=== PATIENT | female | born 1945 | race Caucasian/White ===

== ENCOUNTER → 2018-08-02 15:58 | Outpatient (CLI) | payer MEDICARE, SELFPAY ==
[2018-08-02 16:06] LABS: Pathologist Comment May follow
[2018-08-02 18:23] LABS: Synovial Fld Mononuclear WBC % 87.3 %; Synovial Fld Polynuclear WBC # 0.066 10^3/ul; Synovial Fld Polynuclear WBC % 12.7 %
[2018-08-02 18:35] LABS: RBC /Synovial Fluid 8 /mm3 (0)
[2018-08-02 19:02] LABS: AUTO B FLUID DILUENT BKGD CT WBC <0.1 RBC <0.01 (W<.1,R<.01); Source / Synovial Fluid L.KNEE; Source- Body Fluid SYNOVIAL
[2018-08-02 19:03] LABS: Appearance /Synovial Fluid Sl Cl (CLEAR); Body Fluid QC Type(s) BF3Q,BF4Q; Color / Synovial Fluid Yellow (Pale Yellow); Lymph 10 %; Monocyte /Synovial Fluid 75 %; Neutrophil 15 % (0-25)
[2018-08-06 14:34] LABS: Pathologist Review Reviewed
--- OUTSIDE RECORDS SUMMARY | 2018-09-27 15:38 | XMS RPT_ITS ---
:1945 Author Organization OHIP Care Team Providers Name Role Phone CLARITA ESCOBAR, DR. TERAN W Attending Unavailable MIKE RAMIREZ, MS. ESPAÑA SLilian Primary Care Unavailable DR. JEFFRY OTTO MD. Attending Unavailable MIKE RAMIREZ, MS. ESPAÑA SLilian Primary Care Unavailable EVA BABIN CNP Attending Unavailable MIKE RAMIREZ, MS. TACO SLilian Primary Care Unavailable EVA BABIN CNP Attending Unavailable MIKE RAMIREZ, MS. TACO S. Primary Care Unavailable MIKE RAMIREZ, MSLilian NAJERATACO SLilian Attending Unavailable MIKE RAMIREZ, MS. TACO SLilian Primary Care Unavailable TACO MCKEON (STREET FLUSHER DRIVER) Referring Unavailable NATO REYES Attending Unavailable CLEMENCIA LOPEZ (PA) Attending Unavailable CLEMENCIA LOPEZ) Referring Unavailable CLEMENCIA LOPEZ (ANIBAL) Referring Unavailable CLEMENCIA LOPEZ (ANIBAL) Referring Unavailable Jayshree Edwards Attending Unavailable Taco Mckeon Primary Care Unavailable Eldon Mohan PA-C Attending Unavailable Eldon Mohan PA-C Referring Unavailable Taco Mckeon STREET FLUSHER DRIVER-Ellie Primary Care Unavailable PROBLEMS PROBLEMS DATE TYPE CONDITION / CODE ATTENDING STATUS SOURCE 08/02/2018 Unknown M17.12 - Unilateral [place], Active [facility] primary Eldon RUIZ [facility] M17.12(ICD-10) 03/25/2018 Active Moderate persistent NA Active [facility] asthma, [facility] uncomplicated / Repository J45.40(ICD-10) 09/24/2017 Active Unknown / NATO REYES Active [facility] UNK(Unknown) [facility] [place] Repository PROCEDURES PROCEDURES No Procedure Records FoundRESULTS RESULTS SYNOVIAL FLUID RBC, Collected: 08/02/2018 Status: F Source: [place] WBC AND DIFF 12:00 AM REPOSITORY TYPE CODE TESTS RESULT OUT OF RANGE REFERENCE UNITS LAB L200.5050 0.000-0.000 10 3 uL High SYN Tot 0.[address] Result Comment: This is the Total Number of Nucleated Cell Types in the Body Fluid. LAB L200.5100 0 /mm3 High SYNOVIAL RBC 8 Result Comment: 10,6 AVG=8 LAB L200.5200 0.000-0.002 10 3uL High SYNOVIAL WBC 0.5200 LAB L200.5260 % SYBF Normal PMN WBC% 12.7 LAB L200.5270 10 3/ul SYBF Normal PMN WBC# 0.066 LAB L200.5280 % SYBF Normal MN WBC% 87.3 LAB L200.5800 PATH Normal COM/SYFL May follow LAB L200.4600 Normal SYNOVIAL SOURCE L.KNEE LAB L200.4900 Pale Yellow Normal SYNOVIAL COLOR Yellow LAB L200.5000 CLEAR Normal SYNOVIAL DWIGHT. Sl Cl LAB L200.5300 0-25 % Normal NEUTROPHIL 15 LAB L200.5400 % LYMPH Normal 10 LAB L200.5500 % MONO Normal 75 Performed By: #### L200.0400, L200.4175 #### [facility] [address] [place], [address] CRYSTALS, BODY FLUID Collected: 08/02/2018 Status: C Source: [place] 12:00 AM REPOSITORY TYPE CODE TESTS RESULT OUT OF RANGE REFERENCE UNITS LAB L200.4200 Normal SEE PATH REV CRYSTALS/BF LAB L200.4225 Normal SYNOVIAL SOURCE/BF LAB L200.6020 Normal PATH Reviewed REV Result Comment: Negative for malignant cells and crystals. Kvng Good M.D. 08/06/18 AMENDED REPORT 08/06/18 1434 PATH REV previously reported as: Will follow Performed By: #### L200.0400, L200.4175 #### [facility] [address] [place], [address] Observed: 08/02/2018 Status: F Source: [place] CULTURE, BODY FLUID 12:00 AM REPOSITORY List Antibiotics Last 48 Hours? UNK List Antibiotics to be Started? UNK Gram Stain Centrifuged Specimen? Culture performed on centrifuged specimen Gram Stain Red Cell Stroma 2+ White Blood Cells Rare No organisms seen Body Fluid Cult NO GROWTH IN 14 DAYS Cult, Anaerobic No growth in 5 days. Performed By: #### M100.1300 #### [facility] [address] [place], [address] XR KNEE 4 VIEWS Observed: 07/24/2018 Status: F Source: [facility] LEFT 2:41 PM FOUNDATION REPOSITORY ORIGINAL XR KNEE 4 VIEWS LEFT CLINICAL STATEMENT: pain COMPARISON: None FINDINGS:There is no fracture or dislocation. There is no bony destructive lesion present. Moderate joint effusion is present. IMPRESSION:Joint effusion Interpreted By: Selena Peterson MD Preliminary Report By: Selena Peterson MD Electronically Signed By: Selena Peterson MD Dictated Date: 07/24/2018 3:18:41 PM Prelim Date: 07/24/2018 3:18:41 PM Sign Date: 07/24/2018 3:19:09 PM MA MAMMOGRAM SCREENING Observed: 04/10/2018 Status: F Source: [facility] BILATERAL W/AVRIL 1:30 PM FOUNDATION REPOSITORY ORIGINAL FROM: [address] [address] PROCEDURE FOR: DEBORA DICKERSON [address] [place] [address] Home: PID#: [id number] Exam#: [id number] : 1945 Age: 73 TO: JEFFRY OTTO MD [facility] [address] [facility] [address] [place] [address] #[id number] DIGITAL SCREENING MAMMOGRAM 3D/2D WITH CAD WITH MEDIOLATERAL OBLIQUE CRANIOCAUDAL: 04/10/2018 Comparison is made to exams dated: 10/12/2017 mammogram, 03/07/2017 mammogram, 03/02/2017 mammogram, and 03/01/2015 mammogram - [facility]. The tissue of both breasts is heterogeneously dense. Current study was also evaluated with a Computer Aided Detection (CAD) system. There are benign calcifications in the right breast. There also are post operative findings in the right breast. No significant masses, calcifications, or other findings are seen in either breast. There has been no significant interval change. IMPRESSION: BENIGN There is no mammographic evidence of malignancy. A 1 year screening mammogram is recommended. LAILA han/tami:04/10/2018 16:31:16 copy to: TACO ROD, ph: [phone], fax: [phone] Brick Loader: CODY DAVIS RT (R)(M), [facility] letter sent: Normal BI-RADS 1&2 Mammogram BI-RADS: 2 Benign PROGRESS Observed: 03/25/2018 Status: COMPLETED Source: [place] 10:19 AM [facility] REPOSITORY HNO ID: [id number] Author: Clemencia Lopez Service: (none) Author Type: Physician Tool Maker Bench Type: Progress Notes Filed: 03/25/2018 10:36 AM Note Text: [facility] [place], 03/25/18: INTERVAL HISTORY: The patient is here for follow up of asthma; the last Pulmonary Clinic visit was 09/24/17. The patient admits to compliance with prescribed maintenance Rx: Symbicort 2 inhalations twice daily. There have been no ED visit(s) for the management of asthma exacerbation. No hospitalization(s) for management of asthma exacerbation. Has used no prednisone for the management of exacerbation. Variable rescue bronchodilator use, with good relief. Dependent on allergy control. No nocturnal awakenings per month with asthma symptoms. Minimal cough. No sputum. No hemoptysis. No pleuritic chest pain. No wheezing. No dyspnea. Walks dogs without issues. No disruption in taste or voice associated with use of inhaled corticosteroid. No tremor, palpitations, or muscle cramping associated with bronchodilator inhalation. PMH: Updated with patient today. FAMH: Updated with patient today. SOCH: Updated with patient today. ROS: General: Generally feels good. Appetite good. Weight stable. Eyes, Ears, nose, throat: Post nasal drip, rhinorrhea. No purulent nasal discharge, epistaxis. No hoarseness. Vision stable. Cardiac: No angina, edema, orthopnea. GI: No heartburn as long as takes Nexium. No dysphagia, diarrhea. Uro/LITERACY COORDINATOR: No dysuria, hesitancy, nocturia. Musculoskeletal: No pain. Neuro: No headache, focal weakness, tremor. Skin: No rash. Otherwise negative. There is no immunization history on file for this patient. Allergies were verified and updated, and medications were reconciled with the patient at this visit. PHYSICAL EXAMINATION: BP 104/62 Pulse 77 Resp 16 Ht 5' 5.5 (1.66m) Wt 186 lb (84.4kg) SpO2 96% BMI 30.47 kg/(m2). Gen: No acute distress. Cooperative with examination. ENT: Nares clear. Oral hygeine good. Pharynx clear. No sign of oral thrush. Resp: No stridor, accessory respiratory muscle use. No crackles, wheezes. CV: Regular rythm. Heart tones normal. Radial pulses normal. Abd: Non distended. MSK: No kyphoscoliosis. Ext: Warm and well perfused. No cyanosis. Skin: No rash, eczema, urticaria. Neuro: Mental status normal. No tremor. DATA REVIEW: DATE: 03/25/18 FVC 3.04 (98 % pred) FEV1 2.11 (90 % pred) FEV1/FVC 0.69 Exhaled Nitric Oxide, 03/25/18: 28 ppb Exhaled Nitric Oxide, 05/18/16: 37 ppb Exhaled Nitric Oxide, 09/09/15: 24 ppb Exhaled Nitric Oxide, 07/09/15: 26 ppb ASTHMA CONTROL TEST Date: 03/25/2018 1. In the last 4 weeks, how much of the time did your asthma keep you from getting as much done at work or home that you wanted to do? None of the time (5) 2. In the last 4 weeks, how often have you had shortness of breath? Not at all (5) 3. In the last 4 weeks, how often did your asthma symptoms (wheezing, coughing, shortness of breath, chest tightness or pain) wake you up at night or earlier than usual? Not at all (5) 4. In the last 4 weeks, how often have you used your rescue inhaler or nebulizer medication (such as Albuterol, Proventil, Ventolin, Maxair, Xoponex, or Primatene Mist)? A few times per week (3) 5. In the last 4 weeks, how would you rate your asthma control? Completely controlled (5) Total: more than 20 IMPRESSION and RECOMMENDATIONS: Asthma, mild persistent, well controlled. 1. I reviewed the pathophysiology of asthma, NIH guidelines for evaluation and management, and mechanisms of action and side effects of medical therapy (ICS, bronchodilators) with the patient. 2. Changes in maintenance Rx: None. 3. Continue Albuterol HFA inhaler, 2 inhalations 10?15 minutes prior to activities associated with shortness of breath, and as needed for rescue relief of shortness of breath or wheezing, up to 4 times daily. 4. Re-assess in 1 year, sooner if needed. I addressed the questions of the patient, and she expressed understanding and acceptance of my answers. Clemencia Lopez PA-C [facility] [place] [facility] [place] [address] [place] [address] CNOV Observed: 03/25/2018 Status: COMPLETED Source: [place] 10:00 AM [facility] REPOSITORY Office Visit (PULMWS) TU[place]DE[place]ORA ([id number]) 1945 F Date Time Provider Department 03/25/18 10:00 AM CLEMENCIA LOPEZ During your visit today, we recorded the following information about you: Pulse Respiration Blood pressure Weight 77/minute 16/minute 104/62 84.4 kg Height 1.664 m Isi Mirza KECIA 03/25/2018 10:02 AM Signed Intake information documented in the prior visit with Arabella Walter, MANAGER OF DATA today. Clemencia Lopez PA-C 03/25/2018 10:36 AM Signed [facility] [place], 03/25/18: INTERVAL HISTORY: The patient is here for follow up of asthma; the last Pulmonary Clinic visit was 09/24/17. The patient admits to compliance with prescribed maintenance Rx: Symbicort 2 inhalations twice daily. There have been no ED visit(s) for the management of asthma exacerbation. No hospitalization(s) for management of asthma exacerbation. Has used no prednisone for the management of exacerbation. Variable rescue bronchodilator use, with good relief. Dependent on allergy control. No nocturnal awakenings per month with asthma symptoms. Minimal cough. No sputum. No hemoptysis. No pleuritic chest pain. No wheezing. No dyspnea. Walks dogs without issues. No disruption in taste or voice associated with use of inhaled corticosteroid. No tremor, palpitations, or muscle cramping associated with bronchodilator inhalation. PMH: Updated with patient today. FAMH: Updated with patient today. SOCH: Updated with patient today. ROS: General: Generally feels good. Appetite good. Weight stable. Eyes, Ears, nose, throat: Post nasal drip, rhinorrhea. No purulent nasal discharge, epistaxis. No hoarseness. Vision stable. Cardiac: No angina, edema, orthopnea. GI: No heartburn as long as takes Nexium. No dysphagia, diarrhea. Uro/LITERACY COORDINATOR: No dysuria, hesitancy, nocturia. Musculoskeletal: No pain. Neuro: No headache, focal weakness, tremor. Skin: No rash. Otherwise negative. There is no immunization history on file for this patient. Allergies were verified and updated, and medications were reconciled with the patient at this visit. PHYSICAL EXAMINATION: BP 104/62 Pulse 77 Resp 16 Ht 5' 5.5 (1.66m) Wt 186 lb (84.4kg) SpO2 96% BMI 30.47 kg/(m2). Gen: No acute distress. Cooperative with examination. ENT: Nares clear. Oral hygeine good. Pharynx clear. No sign of oral thrush. Resp: No stridor, accessory respiratory muscle use. No crackles, wheezes. CV: Regular rythm. Heart tones normal. Radial pulses normal. Abd: Non distended. MSK: No kyphoscoliosis. Ext: Warm and well perfused. No cyanosis. Skin: No rash, eczema, urticaria. Neuro: Mental status normal. No tremor. DATA REVIEW: DATE: 03/25/18 FVC 3.04 (98 % pred) FEV1 2.11 (90 % pred) FEV1/FVC 0.69 Exhaled Nitric Oxide, 03/25/18: 28 ppb Exhaled Nitric Oxide, 05/18/16: 37 ppb Exhaled Nitric Oxide, 09/09/15: 24 ppb Exhaled Nitric Oxide, 07/09/15: 26 ppb ASTHMA CONTROL TEST Date: 03/25/2018 1. In the last 4 weeks, how much of the time did your asthma keep you from getting as much done at work or home that you wanted to do? None of the time (5) 2. In the last 4 weeks, how often have you had shortness of breath? Not at all (5) 3. In the last 4 weeks, how often did your asthma symptoms (wheezing, coughing, shortness of breath, chest tightness or pain) wake you up at night or earlier than usual? Not at all (5) 4. In the last 4 weeks, how often have you used your rescue inhaler or nebulizer medication (such as Albuterol, Proventil, Ventolin, Maxair, Xoponex, or Primatene Mist)? A few times per week (3) 5. In the last 4 weeks, how would you rate your asthma control? Completely controlled (5) Total: more than 20 IMPRESSION and RECOMMENDATIONS: Asthma, mild persistent, well controlled. 1. I reviewed the pathophysiology of asthma, NIH guidelines for evaluation and management, and mechanisms of action and side effects of medical therapy (ICS, bronchodilators) with the patient. 2. Changes in maintenance Rx: None. 3. Continue Albuterol HFA inhaler, 2 inhalations 10?15 minutes prior to activities associated with shortness of breath, and as needed for rescue relief of shortness of breath or wheezing, up to 4 times daily. 4. Re-assess in 1 year, sooner if needed. I addressed the questions of the patient, and she expressed understanding and acceptance of my answers. Clemencia Lopez PA-C [facility] [address] [place] [id number] Clemencia Lopez PA-C 03/25/2018 10:35 AM Signed Asthma, mild persistent, well controlled. 1. I reviewed the pathophysiology of asthma, NIH guidelines for evaluation and management, and mechanisms of action and side effects of medical therapy (ICS, bronchodilators) with the patient. 2. Changes in maintenance Rx: None. 3. Continue Albuterol HFA inhaler, 2 inhalations 10?15 minutes prior to activities associated with shortness of breath, and as needed for rescue relief of shortness of breath or wheezing, up to 4 times daily. 4. Re-assess in 1 year, sooner if needed. Referring Provider: CLEMENCIA LOPEZ [[id number]] Allergies As of Date: 03/25/2018 Noted Allergy Reaction DIOVAN (VALSARTAN) 07/09/2015 3 - Cough 10 - Anaphylaxis IODINE 04/25/2010 10 - Anaphylaxis SHELLFISH DERIVED 07/09/2015 11 - Vomiting SULFA (SULFONAMIDE ANTIBIOTICS) 04/25/2010 7 - Swelling Comments: Face and eyes. HYDROCHLOROTHIAZIDE 07/09/2015 4 - Hives 7 - Swelling LEVAQUIN (LEVOFLOXACIN) 07/09/2015 14 - Other: See Comments Comments: Joint pain and stiffness SEA SALT 07/09/2015 14 - Other: See Comments Comments: Extreme vertigo SERTRALINE 07/09/2015 14 - Other: See Comments Comments: palpitations Date Reviewed: 03/25/2018 Reviewed by: Clemencia Lopez - Fully Assessed Reason for Visit: Established Patient [175] Cmt: asthma Primary Visit Diagnosis:Mild persistent asthma without complication [J45.30] Other Visit Diagnosis:Obesity, Class I, BMI 30-34.9 [E66.9] Order(s):NITRIC OXIDE, EXHALED [7634612] Order #: [id number] FUTURE Prescriptions as of 03/25/2018 Sig: SITAGLIPTIN 100 MG TABLET Take 1 tablet by mouth every * RALOXIFENE 60 MG TABLET Take 1 tablet by mouth once d* BUDESONIDE-FORMOTEROL HFA 160* USE 2 INHALATIONS TWICE A DAY* MONTELUKAST 10 MG TABLET Take one(1) tablet daily. CETIRIZINE 10 MG TABLET Take one(1) tablet daily. LOSARTAN 100 MG TABLET Take 100 mg by mouth once carmela* SIMVASTATIN 20 MG TABLET Take 20 mg by mouth daily at * ESOMEPRAZOLE MAGNESIUM 40 MG * Take 40 mg by mouth once ashli* GLIMEPIRIDE 1 MG TABLET Take 1 mg by mouth daily with* AMLODIPINE 5 MG TABLET Take 5 mg by mouth once daily. ALBUTEROL SULFATE HFA INHALAT* As needed. PATANOL 0.1 % EYE DROPS As needed. PROPRANOLOL 80 MG TABLET Take one(1) tablet daily. CALCIUM + VITAMIN D ORAL Take one(1) tablet two(2) deborah* Problem List As Of Date 03/25/2018 Noted Resolved Obesity, Class I, BMI 30-34.9 [E66.9] INVALID FOR* Mild persistent asthma without complication [J4* Other instructions from your clinician: Asthma, mild persistent, well controlled. 1. I reviewed the pathophysiology of asthma, NIH guidelines for evaluation and management, and mechanisms of action and side effects of medical therapy (ICS, bronchodilators) with the patient. 2. Changes in maintenance Rx: None. 3. Continue Albuterol HFA inhaler, 2 inhalations 10?15 minutes prior to activities associated with shortness of breath, and as needed for rescue relief of shortness of breath or wheezing, up to 4 times daily. 4. Re-assess in 1 year, sooner if needed. Visit Notes: >> Isi Mirza LPN Mon Mar 25, 2018 10:01 AM Status: Signed Intake information documented in the prior visit with Arabella Walter CRT today. Medications Discontinued During This Encounter oseltamivir (TAMIFLU) 75 mg capsule 10 c* 0 09/24/2017 03/25/2018 Class: Print RX Route: ORAL Sig: Take 1 capsule by mouth twice daily. Disc: Course of therapy completed Disposition: Return in about 1 year (around 03/25/2019). Follow-up and Disposition History Recorded Encounter Status:Closed by CLEMENCIA LOPEZ on 03/25/18 NM MYOCARDIAL SPECT Observed: 12/03/2017 Status: F Source: [place] STRESS/REST 8:00 AM [facility] REPOSITORY ORIGINAL NM MYOCARDIAL SPECT STRESS/REST CLINICAL STATEMENT: CP TECHNIQUE: Lexiscan dose:0.4 mg Radiopharmaceutical (stress): Tc-99m Sestamibi Dose:32.7 mCi Radiopharmaceutical (rest): Tc-99m Sestamibi Dose:11.0 mCi SPECT acquisition and processing Reconstruction and reorientation of SPECT images into short axis, vertical and horizontal long axis planes Quantitative LVEF assessment COMPARISON:04/10/2014. REPORT:On stress and rest images the heart is normal in size. On gated imaging the ejection fraction is normal at 67% with normal wall motion. On stress images there is a decrease in the uptake of activ ity in the anterior, anterolateral and anteroseptal kulkarni. There is additionally a decrease in the uptake of activity in the apical inferolateral wall. There is no significant improvement in the uptake of activity in these areas on rest images. IMPRESSION: 1. No evidence of significant inducible ischemia or prior myocardial infarction. 2. Normal ejection fraction of 67% with normal wall motion. 3. Fixed defects as above most consistent with soft tissue attenuation artifact. Interpreted By: Mik Pierre MD Preliminary Report By: Mik Pierre MD Electronically Signed By: Mik Pierre MD Dictated Date: 12/03/2017 5:23:08 PM Prelim Date: 12/03/2017 5:23:08 PM Sign Date: 12/03/2017 5:31:09 PM MA MAMMOGRAM Observed: 10/12/2017 Status: F Source: [place] [email or web address] DIAGNOSTIC RIGHT 8:30 AM [facility] REPOSITORY W/AVRIL ORIGINAL FROM: [facility] [address] [place], [place] [address] PROCEDURE FOR: DEBORA DICKERSON [address] [place] [address] Home: PID#: [id number] Exam#: [id number] : 1945 Age: 72 TO: JEFFRY OTTO MD [address] [place] [address] #[id number] DIGITAL DIAGNOSTIC MAMMOGRAM 3D/2D WITH CAD WITH MEDIOLATERAL OBLIQUE CRANIOCAUDAL: 10/12/2017 CLINICAL: 6 MONTHS FOLLOW-UP POST BIOPSY. Comparison is made to exams dated: 03/07/2017 mammogram, 03/02/2017 mammogram, and 03/01/2015 mammogram - [facility]. The tissue of the right breast is heterogeneously dense. Current study was also evaluated with a Computer Aided Detection (CAD) system. Benign appearing calcifications are present in the right breast. There are post-op changes associated with the right breast. No significant masses, calcifications, or other findings are seen in the breast. IMPRESSION: BENIGN There is no mammographic evidence of malignancy. Return to annual mammogram screening schedule is recommended. LAILA JANSEN MD ab/:10/12/2017 08:34:47 copy to: TACO ROD, ph: [phone], fax: [phone] Brick Loader: CODY PEÑALOZA (R)(M), [facility] letter sent: Normal BI-RADS 1&2 Mammogram BI-RADS: 2 Benign CNOV Observed: 09/24/2017 Status: COMPLETED Source: [place] 3:00 PM [facility] REPOSITORY Office Visit (PULMWS) DEBORA DICKERSON ([id number]) 1945 F Date Time Provider Department 09/24/17 3:00 PM CLEMENCIA LOPEZ During your visit today, we recorded the following information about you: Pulse Respiration Blood pressure Weight 76/minute 18/minute 140/70 87.5 kg Clemencia Lopez PA-C 09/24/2017 3:20 PM Signed [facility] [place], 09/24/17: INTERVAL HISTORY: The patient is here for follow up of asthma. Since the last visit 10/31/16, patient relates no ED visits or hospitalizations for management of exacerbation. Recently treated by PCP with antibiotics for bronchitis. The patient has been compliant with therapy recommended at the last visit. Minimal cough. No sputum. No hemoptysis. No pleuritic chest pain. Occasional wheezing with recent bronchitis. Typically no dyspnea, however has noted some with bronchitis. No nocturnal awakenings. Increased rescue bronchodilator use. Side effects from medications: none. PMH: Reviewed with patient today. No changes. FAMH: Reviewed with patient today. No changes. SOCH: No changes. ROS: General: Generally feels well. Appetite good. Weight stable. Eyes: No blurred vision, eye pain. Ears, nose, throat: Chronic post nasal drip, rhinorrhea. No purulent nasal discharge, hoarseness. Cardiac: No angina, edema, orthopnea, paroxysmal nocturnal dyspnea, palpitations. GI: No heartburn, on PPI. No dysphagia. Uro/LITERACY COORDINATOR: No dysuria, hesitancy. Neuro/Psych: No headache, focal weakness, tremor. Sleeps well. Skin: No rash. Otherwise negative. There is no immunization history on file for this patient. Allergies were verified and updated, and medications were reconciled with the patient at this visit. PHYSICAL EXAMINATION: BP 140/70 Pulse 76 Resp 18 Wt 193 lb (87.5kg) SpO2 95% Body mass index is 31.63 kg/(m2). Gen: No acute distress. Cooperative with examination. ENT: Sclerae clear. EOMI. Nares clear. Oral hygeine good. No oral thrush. Resp: No stridor, accessory respiratory muscle use, supra- sternal or intercostal retractions. No crackles, wheezes, rubs. CV: Regular rythm. Heart tones normal. Radial pulses normal. Abd: Non distended. MSK: No kyphoscoliosis, joint deformities. Ext: Warm and well perfused. No clubbing, cyanosis, edema. Skin: Color normal. Texture normal. No rash, eczema, urticaria. Neuro: Mental status normal. Affect normal. Muscle tone normal. No tremor. DATA REVIEW: No new data. IMPRESSION and RECOMMENDATIONS: Asthma, moderate persistent, well controlled symptomatically. - Continue maintenance Symbicort 2 inhalations twice daily. - Continue Albuterol HFA metered dose inhaler, 2 inhalations as needed for shortness of breath or wheezing, up to every 4 hours. - Rx for Tamiflu 75 mg twice daily for 5 days given if needed for abrupt development of fever, cough, sore throat, myalgia, headache during flu season (as declines vaccination). - Follow up in 6 months with spirometry and nitric oxide, sooner if needed. - I reviewed the pathophysiology of asthma, NIH guidelines for evaluation and management, and mechanisms of action and side effects of medical therapy (ICS, bronchodilators) with the patient. I addressed the questions of the patient, and she expressed understanding and acceptance of my answers. Clemencia Lopez PA-C [facility] [place] [address] [address] Isi Correiaji MCDONNELL 09/24/2017 3:02 PM Signed ROS: General: Generally feels good. Appetite good. Eyes, Ears, nose, throat: notes post nasal drip. notes rhinorrhea. denies purulent nasal discharge. denies epistaxis. denies hoarseness. Vision clear. Cardiac: denies angina, denies edema, denies orthopnea. GI: denies heartburn. denies dysphagia. denies diarrhea. Uro/LITERACY COORDINATOR: denies dysuria. denies hesitancy. denies nocturia. Menses: post menopausal Musculoskeletal: denies pain. Neuro: denies headache, denies focal weakness. denies tremor. Skin: denies rash. Otherwise negative. Clemencia Lopez PA-C 09/24/2017 3:19 PM Signed Asthma, moderate persistent, well controlled symptomatically. - Continue maintenance Symbicort 2 inhalations twice daily. - Continue Albuterol HFA metered dose inhaler, 2 inhalations as needed for shortness of breath or wheezing, up to every 4 hours. - Rx for Tamiflu 75 mg twice daily for 5 days given if needed for abrupt development of fever, cough, sore throat, myalgia, headache during flu season (as declines vaccination). - Follow up in 6 months with spirometry and nitric oxide, sooner if needed. Referring Provider: TACO MCKEON [[id number]] Allergies As of Date: 09/24/2017 Noted Allergy Reaction DIOVAN (VALSARTAN) 07/09/2015 3 - Cough 10 - Anaphylaxis IODINE 04/25/2010 10 - Anaphylaxis SHELLFISH DERIVED 07/09/2015 11 - Vomiting SULFA (SULFONAMIDE ANTIBIOTICS) 04/25/2010 7 - Swelling Comments: Face and eyes. HYDROCHLOROTHIAZIDE 07/09/2015 4 - Hives 7 - Swelling LEVAQUIN (LEVOFLOXACIN) 07/09/2015 14 - Other: See Comments Comments: Joint pain and stiffness SEA SALT 07/09/2015 14 - Other: See Comments Comments: Extreme vertigo SERTRALINE 07/09/2015 14 - Other: See Comments Comments: palpitations Date Reviewed: 09/24/2017 Reviewed by: Clemencia Lopez - Fully Assessed Reason for Visit: Established Patient [175] Cmt: follow up asthma Primary Visit Diagnosis:Asthma, moderate persistent, well- controlled [J45.40] Order(s):sitaGLIPtin (JANUVIA) 100 mg tabletTake 1 tablet by mouth every other day.Disp: Rfl: raloxifene (EVISTA) 60 mg tabletTake 1 tablet by mouth once daily.Disp: Rfl: oseltamivir (TAMIFLU) 75 mg capsuleTake 1 capsule by mouth twice daily.Disp: 10 capsuleRfl: 0 budesonide-formoterol (SYMBICORT) 160-4.5 mcg/actuation inhalerUSE 2 INHALATIONS TWICE A DAY INSTRUCTEDDisp: 3 InhalerRfl: 3 montelukast (SINGULAIR) 10 mg tabletTake one(1) tablet daily.Disp: 30 tabletRfl: 11 cetirizine (ZYRTEC) 10 mg tabletTake one(1) tablet daily.Disp: 30 tabletRfl: 11 SPIROMETRY BASELINE ONLY [[id number]] Order #: [id number] FUTURE NITRIC OXIDE, EXHALED [[id number]] Order #: [id number] FUTURE Prescriptions as of 09/24/2017 Sig: SITAGLIPTIN 100 MG TABLET Take 1 tablet by mouth every * RALOXIFENE 60 MG TABLET Take 1 tablet by mouth once d* BUDESONIDE-FORMOTEROL HFA 160* USE 2 INHALATIONS TWICE A DAY* MONTELUKAST 10 MG TABLET Take one(1) tablet daily. CETIRIZINE 10 MG TABLET Take one(1) tablet daily. LOSARTAN 100 MG TABLET Take 100 mg by mouth once carmela* SIMVASTATIN 20 MG TABLET Take 20 mg by mouth daily at * ESOMEPRAZOLE MAGNESIUM 40 MG * Take 40 mg by mouth once ashli* GLIMEPIRIDE 1 MG TABLET Take 1 mg by mouth daily with* AMLODIPINE 5 MG TABLET Take 5 mg by mouth once daily. ALBUTEROL SULFATE HFA INHALAT* As needed. PATANOL 0.1 % EYE DROPS As needed. PROPRANOLOL 80 MG TABLET Take one(1) tablet daily. CALCIUM + VITAMIN D ORAL Take one(1) tablet two(2) deborah* OSELTAMIVIR 75 MG CAPSULE Take 1 capsule by mouth twice* Problem List As Of Date: 09/24/2017 (None) Other instructions from your clinician: Asthma, moderate persistent, well controlled symptomatically. - Continue maintenance Symbicort 2 inhalations twice daily. - Continue Albuterol HFA metered dose inhaler, 2 inhalations as needed for shortness of breath or wheezing, up to every 4 hours. - Rx for Tamiflu 75 mg twice daily for 5 days given if needed for abrupt development of fever, cough, sore throat, myalgia, headache during flu season (as declines vaccination). - Follow up in 6 months with spirometry and nitric oxide, sooner if needed. Visit Notes: >> Isi Mirza KECIA SunSep 24, 2017 2:59 PM Status: Signed ROS: General: Generally feels good. Appetite good. Eyes, Ears, nose, throat: notes post nasal drip. notes rhinorrhea. denies purulent nasal discharge. denies epistaxis. denies hoarseness. Vision clear. Cardiac: denies angina, denies edema, denies orthopnea. GI: denies heartburn. denies dysphagia. denies diarrhea. Uro/LITERACY COORDINATOR: denies dysuria. denies hesitancy. denies nocturia. Menses: post menopausal Musculoskeletal: denies pain. Neuro: denies headache, denies focal weakness. denies tremor. Skin: denies rash. Otherwise negative. Prescriptions ordered this encounter Disp Refills Start End SITAGLIPTIN 100 MG TABLET 09/24/2017 Class: Med Update Route: ORAL Sig: Take 1 tablet by mouth every other day. RALOXIFENE 60 MG TABLET 09/24/2017 Class: Med Update Route: ORAL Sig: Take 1 tablet by mouth once daily. OSELTAMIVIR 75 MG CAPSULE 10 c* 0 09/24/2017 Class: Print RX Route: ORAL Sig: Take 1 capsule by mouth twice daily. BUDESONIDE-FORMOTEROL HFA 160 MCG-4.* 3 In* 3 09/24/2017 Sig: USE 2 INHALATIONS TWICE A DAY INSTRUCTED MONTELUKAST 10 MG TABLET 30 t* 11 09/24/2017 Sig: Take one(1) tablet daily. CETIRIZINE 10 MG TABLET 30 t* 11 09/24/2017 Sig: Take one(1) tablet daily. Medications Discontinued During This Encounter alendronate (FOSAMAX) 70 mg ORAL tab* 0 12/11/2011 09/24/2017 Class: Historical Med Route: ORAL Sig: Take by mouth once each week. Disc: Changing Therapy/Dosage Form oseltamivir (TAMIFLU) 75 mg capsule 10 c* 0 05/18/2016 09/24/2017 Class: Print RX Route: ORAL Sig: Take 1 capsule by mouth twice daily. Patient not taking: Reported on 09/24/2017 Disc: Reason for discontinue is not on file. budesonide-formoterol (SYMBICORT) 16* 3 In* 3 10/31/2016 09/24/2017 Sig: USE 2 INHALATIONS TWICE A DAY INSTRUCTED Disc: Reason for discontinue is not on file. montelukast sodium(SINGULAIR 10 MG T* 09/24/2017 Class: Med Update Route: ORAL Sig: Take one(1) tablet daily. Disc: Reason for discontinue is not on file. cetirizine hcl(ZYRTEC 10 MG TAB) 09/24/2017 Class: Med Update Route: ORAL Sig: Take one(1) tablet daily. Disc: Reason for discontinue is not on file. Disposition: Return in about 6 months (around 03/24/2018). Follow-up and Disposition History Recorded Encounter Status:Closed by CLEMENCIA LOPEZ on 09/24/17 PROGRESS Observed: 09/24/2017 Status: COMPLETED Source: BELVA 2:58 PM [facility] REPOSITORY HNO ID: [id number] Author: Clemencia Lopez Service: (none) Author Type: Physician Tool Maker Bench Type: Progress Notes Filed: 09/24/2017 3:20 PM Note Text: [facility] [place], 09/24/17: INTERVAL HISTORY: The patient is here for follow up of asthma. Since the last visit 10/31/16, patient relates no ED visits or hospitalizations for management of exacerbation. Recently treated by PCP with antibiotics for bronchitis. The patient has been compliant with therapy recommended at the last visit. Minimal cough. No sputum. No hemoptysis. No pleuritic chest pain. Occasional wheezing with recent bronchitis. Typically no dyspnea, however has noted some with bronchitis. No nocturnal awakenings. Increased rescue bronchodilator use. Side effects from medications: none. PMH: Reviewed with patient today. No changes. FAMH: Reviewed with patient today. No changes. SOCH: No changes. ROS: General: Generally feels well. Appetite good. Weight stable. Eyes: No blurred vision, eye pain. Ears, nose, throat: Chronic post nasal drip, rhinorrhea. No purulent nasal discharge, hoarseness. Cardiac: No angina, edema, orthopnea, paroxysmal nocturnal dyspnea, palpitations. GI: No heartburn, on PPI. No dysphagia. Uro/LITERACY COORDINATOR: No dysuria, hesitancy. Neuro/Psych: No headache, focal weakness, tremor. Sleeps well. Skin: No rash. Otherwise negative. There is no immunization history on file for this patient. Allergies were verified and updated, and medications were reconciled with the patient at this visit. PHYSICAL EXAMINATION: BP 140/70 Pulse 76 Resp 18 Wt 193 lb (87.5kg) SpO2 95% Body mass index is 31.63 kg/(m2). Gen: No acute distress. Cooperative with examination. ENT: Sclerae clear. EOMI. Nares clear. Oral hygeine good. No oral thrush. Resp: No stridor, accessory respiratory muscle use, supra- sternal or intercostal retractions. No crackles, wheezes, rubs. CV: Regular rythm. Heart tones normal. Radial pulses normal. Abd: Non distended. MSK: No kyphoscoliosis, joint deformities. Ext: Warm and well perfused. No clubbing, cyanosis, edema. Skin: Color normal. Texture normal. No rash, eczema, urticaria. Neuro: Mental status normal. Affect normal. Muscle tone normal. No tremor. DATA REVIEW: No new data. IMPRESSION and RECOMMENDATIONS: Asthma, moderate persistent, well controlled symptomatically. - Continue maintenance Symbicort 2 inhalations twice daily. - Continue Albuterol HFA metered dose inhaler, 2 inhalations as needed for shortness of breath or wheezing, up to every 4 hours. - Rx for Tamiflu 75 mg twice daily for 5 days given if needed for abrupt development of fever, cough, sore throat, myalgia, headache during flu season (as declines vaccination). - Follow up in 6 months with spirometry and nitric oxide, sooner if needed. - I reviewed the pathophysiology of asthma, NIH guidelines for evaluation and management, and mechanisms of action and side effects of medical therapy (ICS, bronchodilators) with the patient. I addressed the questions of the patient, and she expressed understanding and acceptance of my answers. Clemencia Lopez PA-C [facility] [address] [address] ALLERGIES ALLERGIES DATE TYPE / NAME / CODE REACTION SEVERITY SOURCE CODE DRUG VALSARTAN COUGH [facility] 5 INGREDI/4 Clinic Main [id number]( [place] SNOMED Repository CT) DRUG SHELLFISH DERIVED Vomiting [facility] 5 INGREDI/4 Clinic Main [id number]( [place] SNOMED Repository CT) DRUG HYDROCHLOROTHIAZIDE HIVES [place] 5 INGREDI/4 Clinic Main [id number]( [place] SNOMED Repository CT) DRUG LEVOFLOXACIN OTHER: SEE [facility] 5 INGREDI/4 Clinic Main [id number]( [place] SNOMED Repository CT) DRUG SEA SALT OTHER: SEE [facility] 5 INGREDI/4 Clinic Main [id number]( [place] SNOMED Repository CT) DRUG SERTRALINE OTHER: SEE [facility] 5 INGREDI/4 Clinic Main [id number]( [place] SNOMED Repository CT) DRUG IODINE ANAPHYLAXIS [facility] 0 INGREDI/4 Clinic Main [id number]( [place] SNOMED Repository CT) Drug SULFA (SULFONAMIDE SWELLING [facility] 0 Class/419 ANTIBIOTICS) Clinic Main 144403([facility] OMED CT) Repository Drug/4195 sea salt [id number] [place] 54544([facility]) Health System Repository Drug/4195 hydrochlorothiazide [id number] [place] 80495([facility] CT) Health System Repository Drug/4195 sertraline [id number] [place] 15368([facility]) Health System Repository Drug/4195 shellfish [id number] [place] 98610([facility] MED CT) Health System Repository Drug/4195 meloxicam [place] 73570([facility] MED CT) Health System Repository Drug/4195 iodine [id number] [facility] 92815([facility] MED CT) Health System Repository Drug/4195 Levaquin [id number] [place] 28028([facility] MED CT) Health System Repository Drug/4195 Diovan [id number] [facility] 70200([facility]) Health System Repository Drug/4195 DAPTOmycin [id number] [place] 48065([facility] MED CT) Health System Repository ENCOUNTERS ENCOUNTERS ADMIT/DISCHARGE ACCOUNT NUMBER ADMITTING ENCOUNTER LOCATION SOURCE CLASS 08/02/2018 [id number] Ambulatory [facility] ding:[facility]SPEC Repository 07/24/2018/07/24/20 [id number] Ambulatory BBuilding:RA [place] [address] [place] [address] Foundation Repository 04/10/2018/04/10/20 [id number] Ambulatory ANANTH Ananth [address] [place] [address] ding:RAD [facility] Repository 03/25/2018/03/26/20 [id number] Ambulatory [address] Repository 03/25/2018/03/25/20 [id number] Ambulatory [address] Repository 03/25/2018/03/26/20 [id number] Ambulatory [address] Repository 12/03/2017/12/04/19 [id number] Ambulatory ANANTH Ananth [address] [place] [address] ding:CVT [facility] Repository 11/28/2017/11/29/19 [id number] Ambulatory ANANTH Ananth [address] [place] [address] ding:RAD [facility] Repository 10/12/2017/10/12/19 [id number] Ambulatory ANANTH Ananth [address] [place] [address] ding:RAD [facility] Repository 09/24/2017/09/27/19 [id number] Ambulatory [address] Repository 09/07/2017/09/07/19 [id number] Ambulatory [facility] [place] 18 uilding:[facility] Repository PAYERS PAYERS ENCOUNTER GUARANTOR PAYER SUBSCRIBER SOURCE 08/02/2018 DEBORA DICKERSON164 Primary [place] [facility] E 2ND Insurance:AETNA TUANDOB: [facility] Number: [id number] [address]Rqm: [id number] Repository Date:[id number] BOX () [id number] [place] [address]KX: 08/02/2018 Secondary NOT GIVENUNK [facility] Insurance:SELF PAY [facility] Number: Effective Repository Date:2018-08-02 07/24/2018 DE[place]A [place] Primary [facility] [place] [facility]:AETNA TUANDOB: [facility] [id number] BOX MEDICARE HMO [id number] Repository [address] [place] [address], EPolicy Number: BOX [place] [id number] [address], [address]~CEHVZVY43@ Date:2018-07-24 - [place] [address]Fqi: DINORAHel: [id number] ) [phone] Name:[facility] Angel [id number] ()Tel: (000) (HP) RETA Melo 000-0000 (WP) [phone]: 04/10/2018 DEBORA [place] Primary [place]A [place] [facility] TUANDOB: Insurance:AETNA TUANDOB: [facility] [id number] BOX MEDICARE [facility] [id number] Repository [address], AMEPolicy Number: BOX [place] [id number] [address], [address]~[id number]@ Date:2017-10-22 [place] [address]Ege: DINORAHel: [id number] ) [phone] Name:[facility] Angel [id number] ()Tel: (000) (HP) RETA Melo 000-0000 (WP) [phone]: 12/03/2017 [facility]:AETNA LEINERDOB: [facility] [id number] BOX MEDICARE HMO [id number] Repository [facility] AMEPolicy Number: ANGEL [place] [id number] [address], [address]~PCVVBEE18@ Date:2017-11-30 [place] [address]Yfr: LAVERNEel: [id number] Name:NPO Angel [id number] (HP)Tel: (000) (HP) [place], [place] 000-[address] (WP) [phone]: 11/28/2017 [facility] [facility] Insurance:AETNA LEINERDOB: [facility] [id number] BOX MEDICARE HMO [id number] Repository [facility] AMEPolicy Number: ANGEL [place] [id number] [address], [address]~IDCKRHA83@ Date:2017-11-19 [place] [address]Uvx: LAVERNEel: [id number] ) [phone] Name:NPO Angel [id number] (HP)Tel: (000) (HP) [place], [place] 000[address] (WP) [phone]: 10/12/2017 [facility] Insurance:AETNA LEINERDOB: [facility] [id number] BOX MEDICARE HMO [id number] Repository [address], AMEPolicy Number: BOX [place] [id number] [address], [address]~XSQPTZA10@ Date:2017-06-15 [place] [address]Jeq: DINORAHel: [id number] Name:NPO [place] [id number] (HP)Tel: (000) (HP)Tel: (203) RETA Melo 000-0000 (WP) [phone] (WP) [phone]: 09/07/2017 DEBORA [place] Primary DEBORA ROBBINSB: Insurance:[facility]: [facility] [id number] E Number: Effective [id number] System 2ND Date:2017-08-[address] [place] [address] [id number] [id number]: Name:CD:[id number] [facility] [id number]: [id number] RETA MELO () [phone]: [phone]) (HP) 000-0000 (WP)
== END ==
PROVIDERS: Family Provider Nurse Practitioner Primary Care; PCP Nurse Practitioner Primary Care; Referring Provider Physician Assistant Surgical; Visit Provider Physician Assistant Surgical
DX: M17.12 Unilateral primary osteoarthritis, left knee (principal)
CPT/HCPCS: 87070; 87075; 87205; 89050; 89051; 89060

== ENCOUNTER → 2018-10-11 12:53 | Outpatient (CLI) | payer MEDICARE, SELFPAY ==
--- NOTE | 2018-10-11 13:18 | EKG12_ITS ---
Test Reason : PRE OP Blood Pressure : / mmHG Vent. Rate : 071 BPM Atrial Rate : 071 BPM P-R Int : 148 ms QRS Dur : 080 ms QT Int : 412 ms P-R-T Axes : 052 017 052 degrees QTc Int : 447 ms Normal sinus rhythm Normal ECG Confirmed by NANCY BESS, MARTIN ([id number]), newspaper photo editor HERMINIO TRINIDAD ([id number]) on 10/14/2018 11:15:47 AM Referred By: Eldon Mohan Confirmed By:MARTIN CRUZ MD
[2018-10-11 16:03] LABS: Hematocrit 42.1 % (37-47); Hemoglobin 13.7 g/dl (12.0-15.0); Mean Corp Hgb Conc 32.5 g/gl (32-36); Mean Corpuscular Hgb 29.3 pg (27.0-32.0); Mean Platelet Vol. 12.6 fl (6.2-12.0); Platelet Count 220 K/mm3 (150-450); RBC Distribution Width CV 13.6 % (11.6-14.6); Red Blood Count 4.68 M/mm3 (4.2-5.4); Scan Indicated on CBC? Y/N NO; White Blood Count 6.6 K/mm3 (4.4-11.0)
[2018-10-11 16:35] LABS: Anion Gap 11 (5-15); BUN 24 mg/dL (7-18); BUN/Creat Ratio 20.9 RATIO (10-20); Calcium,Total 9.4 mg/dL (8.5-10.1); Chloride 104 mmol/L (98-107); Creatinine, Serum 1.15 mg/dL (0.55-1.02); EST Glomerular Filtration Rate 49 mL/min (>60); Est Glom Filt Rate - Afr Amer 60 mL/min (>60); Glucose 217 mg/dL (74-106); Potassium 3.8 mmol/L (3.5-5.1); Sodium Level 141 mmol/L (136-145)
[2018-10-11 16:57] LABS: Hemoglobin A1c 8.9 % (4.2-6.3)
== END ==
PROVIDERS: Family Provider Nurse Practitioner Primary Care; PCP Nurse Practitioner Primary Care; Referring Provider Physician Assistant Surgical; Visit Provider Physician Assistant Surgical
DX: Z01.818 Encounter for other preprocedural examination (principal); Z01.810 Encounter for preprocedural cardiovascular examination; E11.9 Type 2 diabetes mellitus without complications
CPT/HCPCS: 36415; 80048; 83036; 85027; 93005

== ENCOUNTER → 2022-12-11 | Outpatient (CLI) | payer MEDICARE, SELFPAY ==
--- NOTE | 2022-12-11 11:29 | RAD_ITS ---
STUDY: X-RAY - PELVIS AND RIGHT HIP REASON FOR EXAM: Female, 77 years old. TROCHANTERIC BURSITIS TECHNIQUE: 3 views of the pelvis and hip. COMPARISON: None. FINDINGS: There is a non-specific bowel gas pattern. Normal visualized soft tissue structures. Normal bilateral iliac wings, sacroiliac joints and visualized sacrum. Normal bilateral superior and inferior pubic rami. Normal pubic symphysis. Normal bilateral ischial tuberosities. Normal visualized femoral head. Normal acetabulum. Normal hip joint. RAD/HIP, UNI W/ Pelvis 2-3 Views IMPRESSION: Normal x-ray examination of the pelvis and hip. Electronically Signed: Lazaro Ortiz MD at 11:45 EDT ,
== END | disposition home or self-care (01) ==
PROVIDERS: PCP Nurse Practitioner Primary Care; Referring Provider Nurse Practitioner Acute Care; Visit Provider Nurse Practitioner Acute Care
DX: M70.61 Trochanteric bursitis, right hip (principal); M16.11 Unilateral primary osteoarthritis, right hip
CPT/HCPCS: 73502

== ENCOUNTER 2024-01-06 08:42 | Emergency (ER) | payer MEDICARE, SELFPAY ==
[2024-01-06 08:48] VITALS: BP 148/61; PULSE 80; RESP 18; TEMP 36.3; O2SAT 96; BMI 27.1
[2024-01-06 08:50] VITALS: BP 148/61; PULSE 80; RESP 18; TEMP 36.3; O2SAT 96
[2024-01-06] MEDS: Azithromycin 250 MG Tablet 500 MG PO (09:40)
[2024-01-06 09:41] VITALS: BP 116/59; PULSE 84; RESP 16; TEMP 36.6; O2SAT 96
--- NOTE | 2024-01-06 13:13 | EDS_ITS ---
HPI HPI - URI History of Present Illness Chief Complaint: Chest Other Narrative Narrative: 78-year-old female presenting with cough, congestion. She states she is producing yellowish mucus. She has been like this for about 2-1/2 weeks. She is never had any fevers or chills. She is not vomiting but states she does not want to eat. She is not drinking much fluids but is able to drink. She states she has discomfort in her upper abdomen at times. It is unclear whether this is due to coughing but she is not vomiting and she is not having diarrhea and she does not have any other pains. Patient states that even though she has been sick for 2 and half weeks she never been tested for anything. ROS ROS ED Constitutional Constitutional ED: Denies chills, fever(s) or sweats Eyes Eyes: Denies blurry vision or change in vision ENT ENT ED: Reports rhinorrhea and sore throat; Denies ear pain Cardiovascular Cardiovascular: Denies chest pain, palpitations or racing heartbeat Respiratory/Chest Respiratory/Chest: Reports cough; Denies sputum Gastrointestinal Gastrointestinal: Denies abdominal pain, constipation, diarrhea, nausea or vomiting Genitourinary Genitourinary ED: Denies dysuria, hematuria or urinary frequency Musculoskeletal Musculoskeletal: Denies arthralgias, myalgias or neck pain Integumentary Denies abscess, Abrasions or rash Neurologic Neurologic: Denies headache(s), paresthesias or weakness Psychiatric Psychiatric: Denies anxiety, depression, suicidal ideation or suicidal thoughts Endocrine Endocrinology: Denies polydipsia or polyuria [facility] Medical History Asthma Diabetes Hypertension Kidney disease Myocardial infarct Home Medications azithromycin 250 mg tablet 250 mg PO DAILY #4 TABLETS 01/06/24 [Rx Last Taken Unknown] Allergy/AdvReac Type Severity Reaction Status Date / Time hydrochlorothiazide Allergy Severe Hives Verified 01/06/24 08:46 sertraline AdvReac Intermediate palpitation Verified 01/06/24 08:46 s levofloxacin [From Levaquin] AdvReac Mild joint pain Verified 01/06/24 08:46 and stiffness meloxicam AdvReac Mild Nausea/vomi Verified 01/06/24 08:46 ting oxaprozin [From Daypro] AdvReac Mild Constipatio Verified 01/06/24 08:46 n shellfish derived AdvReac Mild Vomiting Verified 01/06/24 08:46 valsartan [From Diovan] AdvReac Mild Nausea Verified 01/06/24 08:46 Social History Smoking Status: Never smoker EXAM Physical Exam Const Vital Signs: 01/06/24 08:48 01/06/24 09:01 01/06/24 09:08 Temperature 97.4 F L Temperature Source Temporal Pulse Rate 80 Respiratory Rate 18 Respiratory Effort Normal Non-Labored Normal Non-Labored Blood Pressure 148/61 H Blood Pressure Mean 90 Pulse Ox 96 Oxygen Delivery Method Room Air 01/06/24 08:50 01/06/24 09:41 Temperature 97.4 F L 97.8 F Temperature Source Temporal Pulse Rate 80 84 Respiratory Rate 18 16 Respiratory Effort Blood Pressure 148/61 H 116/59 L Blood Pressure Mean 90 78 Pulse Ox 96 96 Oxygen Delivery Method Room Air Positive well nourished General Appearance ED: NAD; Negative for pallor HEENT Reports moist mucous membranes normocephalic and atraumatic Eyes PERRL and EOMs intact bilaterally Neck no lymphadenopathy Resp normal respiratory effort and clear to auscultation bilaterally Auscultation: Negative for rales, rhonchi or wheezes Cardio Rate: regular rate GI non-tender Extremity normal to inspection Neuro oriented x3 and CN's II-XII intact bilaterally Sensorium / Orientation: alert Motor Exam: strength 5/5 throughout Skin General Skin Exam: Negative for jaundice or pallor MDM MDM MDM Narrative Medical decision making narrative: Patient presenting with cough, rhinorrhea. She is having some epigastric discomfort but it is not chest pain. She does report that she has been ill for couple weeks and she feels like she is not getting any better. She has not been tested for anything. I offered her lab work and imaging versus just starting her antibiotic clinically to treat her for pneumonia and she wants to try antibiotic first. She was started on a Z-Karan. First dose given in the ER. Return precautions discussed. Impression: 1. Pneumonia Lab Data Attestation: I reviewed the patient's lab results. Discharge Plan Triage Chief Complaint: Chest Other Other Complaint: Cold Sx ED Provider: Scott Galicia Dx/Rx/DC Orders Instructions: ED Pneumonia (Adult) Prescriptions: New azithromycin 250 mg tablet 250 mg PO DAILY Qty: 4 0RF Primary Care Provider: Giselle Juárez NP Referrals: Giselle Juárez NP, CLAY MACHINE OPERATOR-C [Primary Care Provider] - Disposition Disposition: Home, Self Care Discharge Date/Time: 01/06/24 09:46
== END 2024-01-06 09:46 | disposition home or self-care (01) ==
LOC: ED 09:26
PROVIDERS: Emergency Provider Student in an Organized Health Care Education/Training Program; PCP Nurse Practitioner Primary Care; Visit Provider Student in an Organized Health Care Education/Training Program
DX: J18.9 Pneumonia, unspecified organism (principal); E11.9 Type 2 diabetes mellitus without complications; J45.909 Unspecified asthma, uncomplicated; I25.2 Old myocardial infarction
CPT/HCPCS: 99283